=== PATIENT | female | born 1950 | race Caucasian/White ===

== ENCOUNTER 2016-07-29 11:29 | Observation (INO) | payer OTHER, BC ==
[~2016-07-29] VITALS: Ht 167.6 cm; Wt 119.7 kg
[2016-07-29 12:13] LABS: HEMATOCRIT 39.9 % (36.0-46.0); MCH 29.1 PG (29.0-34.0); MCHC 32.6 G/DL (30.0-36.0); MCV 89.5 FL (83-99); PLATELET COUNT 208 K/uL (156-360); RBC DIS.WIDTH-CV 13.6 % (11.8-14.6); RBC DIS.WIDTH-SD 43.3 % (39-53); RED BLOOD COUNT 4.46 M/uL (3.80-5.20); WHITE BLOOD COUNT 5.2 K/uL (4.1-10.2)
[2016-07-29 12:26] LABS: CHLORIDE 105 mEq/L (99-109); POTASSIUM 3.9 mEq/L (3.7-5.4); SODIUM 139 mEq/L (136-147)
[2016-07-29 12:28] LABS: GLUCOSE 95 mg/dL (70-99)
[2016-07-29 12:29] LABS: ANION GAP 8 MEQ/L (2-14)
[2016-07-29 12:32] LABS: GFR ESTIMATE (CALCULATED) > 59 mL/min/
[2016-07-29 12:33] LABS: UREA NITROGEN (BUN) 22 mg/dL (9-23)
[2016-07-29] MEDS ORDERED: LOSARTAN-HCTZ1 EAC1 PO (13:11)
[2016-07-29] MEDS ORDERED: DAILY VITAMIN1 EAC4 PO (13:13)
[2016-07-29] MEDS ORDERED: OMEGA-3 EC SOF1 EAC1 PO (13:13)
[2016-07-29] MEDS ORDERED: GLUCOSAMINE-CH1 EA14 PO (13:14)
[2016-07-29] MEDS ORDERED: VITAMIN D2000 UNI1 PO (13:15)
[2016-07-29] MEDS ORDERED: B COMPLETE1 EACH PO (13:16)
[2016-07-29 14:50] LABS: MAGNESIUM 2.2 mg/dL (1.3-2.7)
[2016-07-29 15:01] LABS: TROP-I INTERPRETATION NEGATIVE; TROPONIN-I < 0.01 ng/mL (0.0-0.30)
[2016-07-29 19:35] LABS: Estimated Average Glucose 108 mg/dL (70-123); HEMOGLOBIN A1c (GLYCOHEMOGLOB) 5.4 % HGB (Below 5.7)
[2016-07-29 19:43] LABS: TROP-I INTERPRETATION NEGATIVE; TROPONIN-I < 0.01 ng/mL (0.0-0.30)
[2016-07-29 23:31] VITALS: BP 162/75
[2016-07-30 03:56] VITALS: BP 126/59
[2016-07-30 07:02] LABS: HDL CHOLESTEROL 63 MG/DL (Desirable>=50); LDL CHOLESTEROL 119 mg/dL (Desirable<100); NON-HDL CHOLESTEROL 132 mg/dL (Desirable<160); TOTAL CHOLESTEROL 195 mg/dL (Desirable<200); TRIGLYCERIDES 65 MG/DL (Normal: <150)
[2016-07-30 08:01] VITALS: BP 146/66
[2016-07-30 11:51] VITALS: BP 141/75
[2016-07-30] MEDS ORDERED: PRAVASTATIN SOD80 MG PO (11:56)
[2016-07-30] MEDS ORDERED: LO-DOSE ASPIRIN81 M2 PO (12:51)
== END 2016-07-30 13:04 | disposition home or self-care (01) ==
LOC: EME 11:29 → 5WEST 16:53 → EDOF 16:53 → 5WEST 23:16
PROVIDERS: Internal Medicine
DX: G45.9 Transient cerebral ischemic attack, unspecified (principal); I10 Essential (primary) hypertension; G47.33 Obstructive sleep apnea (adult) (pediatric); Z88.0 Allergy status to penicillin; Z82.3 Family history of stroke; Z83.3 Family history of diabetes mellitus; Z82.49 Family history of ischemic heart disease and other diseases of the circulatory system
CPT/HCPCS: 70450; 70551; 71020; 80048; 80061; 83036; 83735; 84443; 84484; 85027; 93005; 93306; 93880; 99281; 99285; G0378; J1650